=== PATIENT | male | born 1950 | race Caucasian/White ===

== ENCOUNTER 2017-05-03 05:46 | Day surgery (SDC) | payer OTHER ==
[2017-05-03] MEDS ORDERED: BUPRENORPHINE HC8 MG PO (05:56)
[2017-05-03 06:21] LABS: HEMATOCRIT 46.2 % (38.0-50.0); HEMOGLOBIN 15.6 G/DL (12.5-16.6); MCH 28.5 PG (29.0-34.0); MCHC 33.8 G/DL (30.0-36.0); MCV 84.5 FL (86-99); PLATELET COUNT 254 K/uL (156-360); RBC DIS.WIDTH-SD 39.9 % (39-53); RED BLOOD COUNT 5.47 M/uL (4.00-5.50); WHITE BLOOD COUNT 11.1 K/uL (4.1-10.2)
[2017-05-03 06:25] VITALS: BP 168/94
[2017-05-03 06:38] LABS: CHLORIDE 99 MEQ/L (99-109); POTASSIUM 4.2 MEQ/L (3.7-5.4); SODIUM 136 MEQ/L (136-147); TOTAL BILIRUBIN 0.9 MG/DL (0.0-1.0)
[2017-05-03 06:44] LABS: ALKALINE PHOSPHATASE 74 IU/L (3-129); ALT (GPT) 21 IU/L (3-49); AST (GOT) 24 IU/L (2-34); CREATININE 0.8 MG/DL (0.6-1.3); GFR ESTIMATE (CALCULATED) > 59 mL/min/ (58.99-99999); GLUCOSE 120 mg/dL (70-99); TOTAL PROTEIN 8.3 G/DL (6.4-8.3); UREA NITROGEN (BUN) 14 mg/dL (9-23)
[2017-05-03 09:22] VITALS: BP 150/95
[2017-05-03 10:43] VITALS: BP 127/76
[2017-05-03 11:12] VITALS: BP 163/106
== END 2017-05-03 11:30 | disposition home or self-care (01) ==
LOC: SDC 05:46
PROVIDERS: Ophthalmology
DX: H33.002 Unspecified retinal detachment with retinal break, left eye (principal); H33.42 Traction detachment of retina, left eye
CPT/HCPCS: 80053; 85027; 93005; J0690; J1100; J1120; J1885; J2250; J2405; J2795; J3010; J3300